=== PATIENT | female | born 1945 | race Caucasian/White ===

== ENCOUNTER 2017-02-10 07:40 | Inpatient (IN) ==
--- NOTE | 2017-02-09 16:16 | Discharge Summary ---
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 (2) Gout Priority: Secondary Status: Chronic Qualifiers: Gout site: unspecified site Gout etiology: unspecified cause Chronicity: unspecified Qualified Code(s): M10.9 - Gout, unspecified (3) Diabetes Priority: Secondary Status: Chronic Qualifiers: Diabetes mellitus type: type 2 Diabetes mellitus complication status: with unspecified complications Diabetes mellitus terminal computer operator insulin use: without usp use Qualified Code(s): E11.8 - Type 2 diabetes mellitus with unspecified complications (4) Hypertension Priority: Secondary Status: Chronic Qualifiers: Hypertension type: essential hypertension Qualified Code(s): I10 - Essential (primary) hypertension (5) Hypothyroidism Priority: Secondary Status: Chronic Qualifiers: Hypothyroidism type: unspecified Qualified Code(s): E03.9 - Hypothyroidism , unspecified - Discharge Medications Home Medications: Aripiprazole [Abilify] 5 mg PO HS 05/27/15 [History] Citalopram Hydrobromide [Celexa] 20 mg PO DAILY 05/27/15 [History] Furosemide [Lasix] 40 mg PO BID PRN 05/27/15 [History] Gabapentin [Neurontin] 600 mg PO 1800 05/27/15 [History] Levothyroxine Sodium [Synthroid] 150 mcg PO 0630 05/27/15 [History] Metformin [Glucophage] 1,000 mg PO DAILY 05/27/15 [History] Multivit-Min/FA/Lycopen/Lutein [Centrum Silver Tablet] 1 each PO DAILY 05/27/15 [History] Omeprazole [PriLOSEC] 40 mg PO DAILY 05/27/15 [History] Pravastatin Sodium [Pravachol] 20 mg PO DAILY 05/27/15 [History] Propranolol HCl 20 mg PO DAILY 05/27/15 [History] TraZODone 150 mg PO HS 05/27/15 [History] Tramadol HCl [Tramadol HCl ER] 50 mg PO HS PRN 05/27/15 [History] Allopurinol [Zyloprim] 300 mg PO DAILY PRN 02/10/17 [History] Aspirin/Calcium Carbonate/Mag [Aspirin Buffered 325 mg Tab] 325 mg PO QAM #21 tablet 02/10/17 [Rx] Doxycycline 100 mg PO DAILY 02/10/17 [History] Lisinopril/Hydrochlorothiazide [Zestoretic 20-25 mg Tablet] 1 each PO DAILY [History] OxyCODONE Immed Rel [Roxicodone 5 MG] 5 - 10 mg PO Q6HR PRN #40 tablet 02/10/17 [Rx] Allergies/Adverse Reactions: Allergies adhesive tape Adverse Reaction (Verified 02/10/17 09:08) Rash Primary care physician: Adwoa Pack MD - Patient Status Disposition: Transfer Hospital Swing Bed Condition: Good - Discharge Instructions Follow Up With: Adwoa Pack MD [Primary Care Provider] - Gwendolyn Trejo PAC [Physician Auto Body Repair Teacher] - 02/23/17 1:20 pm Additional Instructions: Discharge Instructions: Total Knee Replacement Please call [facility] ([phone]), your Primary Care Physician, or report to the Emergency Room if you have any of the following symptoms: Nausea, vomiting, fever greater that 101.5, swelling, chest pain, shortness of breath, increased pain/redness/drainage/odor for your incision site, numbness/ tingling, or any other concerning symptoms. ACTIVITY:Weight-bearing as tolerated. You may progress off support (crutches or walker) as tolerated. MEDICATIONS: Upon discharge resume your home medications. Take all the medications as prescribed. Take a stool softener if taking narcotic pain medications. Stool softeners are only effective if you drink enough fluids. Drink 6-8 glass of water or fluids a day, unless this is not allowed for another health problem. Despite using stool softeners, if you haven't had a bowel movement in 3 days, please switch to a gentle laxative. Gentle laxatives are sold over the counter. You should have a bowel movement within 24 hours, if not call the office. You will be discharged from the hospital with a prescription for pain medication. You are encouraged to decrease the use of narcotic pain medication as tolerated. Should you require a refill, please call the office. [facility] prescribes narcotic pain medication for only 4-6 weeks after surgery. If you require pain medication beyond this time period, you may be referred to your Primary Care Physician or to the Pain Clinic for further evaluation. Plan ahead for refills on pain medication as many narcotics either need to be picked up at the office or mailed. It is best to call 48-72 hours in advance of needing a prescription refill so you don't run out of medication. To help control the post-operative pain, you may take NSAIDs (Aleve,Advil, Motrin, Ibuprofen, Naprosyn) or Tylenol as prescribed on the bottle in addition to the pain medication. ANTICOAGULATION (blood thinners): Continue your Aspirin, Lovenox or Coumadin as prescribed to help prevent a blood clot in the leg or in the lungs. As long as your incision remains dry and you tolerate the NSAIDs (Aleve, Advil, Motrin, ibuprofen, naprosyn), it is OK to use the NSAIDS while you are taking your anticoagulation medication. Should your incision start to drain, stop the NSAID and contact our office. Common symptoms of blood clot in the legs include: localized pain, swelling, calf tenderness, redness or discoloration of the skin. Blood clot in the lung symptoms include: shortness of breath, rapid pulse, sweating, and chest pain that worsens with deep breathing, coughing up blood, lightheadedness, feelings of anxiety. If you experience any of these symptoms notify your physician immediately, go to the emergency room, or if having trouble breathing, call 911. WOUND CARE: Leave the dressing on for 7 to 10days. You may change the dressing if it becomes saturated greater than 50%. Do not get the dressing wet at anytime. Wash your hands with antibacterial soap, rinse and dry prior to any wound care. If you have odette the visiting nurse or rehab facility can remove the stapes 10-14 days after surgery and place steri-strips across the wound. Leave the steri-strips in place until they fall off on their won. You may let water from the shower run on top of the steri-strips. If you do not have a visiting nurse or rehab facility, you will need to return to the office at 10-14 days for the odette to be removed. If you have itching or redness around the dressing call the office. FOLLOW-UP: Please follow up with your surgeon in the orthopedic clinic in 4 weeks from the day of surgery. If you have odette that need to be removed, you will need to come back to the office in 10-14 days from the day of surgery. - Hospital Course Hospital course: Ms. Fraga is a 71 year old female - Time Spent with Patient Total time spent providing and/or coordinating discharge services: <Carolin Smart Cyrus - Last Filed: 02/10/17 08:10> Date of Encounter: 02/10/17 - Discharge Diagnosis (1) Loosening of knee joint prosthesis Priority: Primary Status: Acute Qualifiers: Encounter type: initial encounter Qualified Code(s): T84.038A - Mechanical loosening of other internal prosthetic joint, initial encounter; Z96.659 - Presence of unspecified artificial knee joint Primary care physician: Adwoa Pack MD - Hospital Course Hospital course: Ms. Fraga is a 71 year old female - Time Spent with Patient Total time spent providing and/or coordinating discharge services: <Daniel Feliciano - Last Filed: 02/15/17 16:58> Date of Encounter: 02/15/17 Time of Encounter: 16:57 - Discharge Diagnosis (1) Diabetes Priority: Secondary Status: Chronic Qualifiers: Diabetes mellitus type: type 2 Diabetes mellitus complication status: with unspecified complications Diabetes mellitus terminal computer operator insulin use: without usp use Qualified Code(s): E11.8 - Type 2 diabetes mellitus with unspecified complications (2) Thyroid disease Priority: Secondary Status: Chronic (3) Hypertension Priority: Secondary Status: Chronic Qualifiers: Hypertension type: essential hypertension Qualified Code(s): I10 - Essential (primary) hypertension (4) High cholesterol Priority: Secondary Status: Chronic (5) 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 (6) Gout Priority: Secondary Status: Chronic Qualifiers: Gout site: unspecified site Gout etiology: unspecified cause Chronicity: unspecified Qualified Code(s): M10.9 - Gout, unspecified (7) Hypothyroidism Priority: Secondary Status: Chronic Qualifiers: Hypothyroidism type: unspecified Qualified Code(s): E03.9 - Hypothyroidism , unspecified (8) Acute blood loss anemia Priority: Primary Status: Acute (9) Status post revision of total replacement of right knee Priority: Primary Status: Acute (10) Morbid obesity with BMI of 45.0-49.9, adult Priority: Secondary Status: Chronic Primary care physician: Adwoa Pack MD - Patient Status Functional capacity at discharge: uses cane/walker - Hospital Course Hospital course: Ms. Fraga is a 71 year old female Status post revision total knee patient had postoperative urinary retention which resolved with straight catheter patient also had sensitivity to pain medication required Narcan otherwise uneventful postoperative course received physical therapy and antibiotics discharged to extended care facility. - Time Spent with Patient Total time spent providing and/or coordinating discharge services:
--- NOTE | 2017-02-10 07:48 | History & Physical Report ---
Date of Encounter: 02/10/17 Time of Encounter: 07:47 24 Hour HP Update - Instructions Instructions: If the History and Physical is less than 30 days old and was completed prior to A.M. admission and or procedure and has NOT been updated on calendar day of procedure please complete this update prior to performing procedure. - Update Patient reports changes in Medical Condition: No Changes in examination, assessment, or condition: No Changes in Medication: No Preop tests/diagnostics Reviewed: Yes Surgery Remains Indicated: Yes Consent for Planned Operative Procedure(s) Verified: Yes - Pre-Operative Checklist Preoperative Checklist Indicated: No Prophylactic Antibiotic Ordered: Yes Is VTE Prophylaxis Indicated?: Yes
[2017-02-10] MEDS ORDERED: CeFAZolin Pre 2,000 MG/100 ML 2,000 MG/100 ML BAG IVPB ONE (08:02)
[2017-02-10] MEDS ORDERED: Lidocaine -MPF 1% 2 ML VIAL ID ONE (08:02)
[2017-02-10] MEDS: Ringers Solution, Lactated 1,000 ML IVC SCH ×2 (08:37→13:01)
--- NOTE | 2017-02-10 08:53 | Anesthesia Evaluation PreOp ---
Date of Encounter: 02/10/17 Time of Encounter: 08:51 - Past History Planned Operation: r tka Cardiac History: HTN, Hyperlipidemia, Other (echo: 05/31 ef 55, nl rv. 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 History: Other (depression) Other Medical History: Diabetes Type II, Thyroid, GERD Anesthesia History: No Prior Anesthetic Complications, Past Anesthesia ( cholecyst, r tka) Alcohol Use: none Drug use: none Medications and Allergies Aripiprazole [Abilify] 5 mg PO HS 05/27/15 [History] Citalopram Hydrobromide [Celexa] 40 mg PO DAILY 05/27/15 [History] Furosemide [Lasix] 40 mg PO DAILY PRN 05/27/15 [History] Gabapentin [Neurontin] 600 mg PO HS 05/27/15 [History] Levothyroxine Sodium [Synthroid] 150 mcg PO DAILY 05/27/15 [History] Lisinopril [Zestril] 20 mg PO DAILY 05/27/15 [History] Metformin [Glucophage] 1,000 mg PO DAILY 05/27/15 [History] Multivit-Min/FA/Lycopen/Lutein [Centrum Silver Tablet] 1 each PO DAILY 05/27/15 [History] Omeprazole [PriLOSEC] 40 mg PO DAILY 05/27/15 [History] Pravastatin Sodium [Pravachol] 20 mg PO HS 05/27/15 [History] Propranolol HCl 40 mg PO BID 05/27/15 [History] TraZODone 150 mg PO HS 05/27/15 [History] Tramadol HCl [Tramadol HCl ER] 50 mg PO Q6H 05/27/15 [History] Allopurinol [Zyloprim] 300 mg PO DAILY PRN 02/10/17 [History] Aspirin/Calcium Carbonate/Mag [Aspirin Buffered 325 mg Tab] 325 mg PO QAM #21 tablet 02/10/17 [Rx] OxyCODONE Immed Rel [Roxicodone 5 MG] 5 - 10 mg PO Q6HR PRN #40 tablet 02/10/17 [Rx] Allergies adhesive tape Adverse Reaction (Verified 02/10/17 08:26) Rash - Meds/Allergy Pre-op Review Medications Reviewed: Yes Allergies Reviewed: Yes Beta Blockers on Current Med List: Yes If Beta Blockers taken, Date/Time (Last Dose taken): propranolol at 0630 Anesthesia Results - Labs Laboratory Tests 02/03/17 02/03/17 02/03/17 13:50 13:50 13:50 Hgb 11.7 Hct 36.1 Plt Count 175 PT 13.4 H INR 1.2 APTT 33.6 Sodium 140 Potassium 3.7 Creatinine 0.86 Hemoglobin A1c 02/03/17 13:50 Hgb Hct Plt Count PT INR APTT Sodium Potassium Creatinine Hemoglobin A1c 7.2 H - Imaging EKG: report reviewed (sr) Anesthesia Exam O2 Sat Height 1.42 m Height 1.42 m Height 1.42 m Weight 93.894 kg Weight 93.894 kg Weight 93.894 kg O2 Sat by Pulse Oximetry 96 Vital Signs Temp Pulse Resp BP Pulse Ox 99.3 F 84 18 153/78 96 02/10/17 08:05 02/10/17 08:05 02/10/17 08:05 02/10/17 08:05 02/10/17 08:05 Blood glucose: 190 Height: 1.42 Weight: 94 NPO (# of Hours): >8 - HEENT Pupil (Motor): Pupils equal, EOMI Mallampati: III Teeth: Poor dentition Oral Opening: Less than or equal to 3 (limited neck ext 2/2 buffalo hump, large neck) - [employer] SU[employer] WORKER LOC: Oriented [employer] SU[employer] WORKER Motor: Normal RUE, Normal LUE, Normal RLE, Normal LLE, Normal Face [employer] SU[employer] WORKER Sensory: Normal: RUE, LUE, RLE, LLE, Face - Cardiac Rhythm: Regular Murmur: None - Pulmonary Breath Sounds: bilateral Clear Respiratory Effort: Symmetrical Anesthesia Assess/Plan ASA Score: 3 Modified Naila Scale for Level of Consciousness: Cooperative, oriented, and tranquil Anesthetic Plan: General, Regional Monitoring Plan: Standard Monitors Recovery Plan: PACU
[2017-02-10] MEDS ORDERED: CloNIDine Patch 0.1 MG PATCH (WEEKLY) TD ONE (09:15)
[2017-02-10] MEDS ORDERED: *HR* Midazolam HCl 2 MG/2 ML VIAL ONE ×2 (09:46→10:02)
[2017-02-10] MEDS ORDERED: Lidocaine -MPF 4% 5 ML AMPUL ONE (10:02)
[2017-02-10] MEDS ORDERED: Lidocaine -MPF 2% 2 ML VIAL ONE (10:02)
[2017-02-10] MEDS ORDERED: *HR* Propofol 200 MG/20 ML VIAL IVP ONE (10:02)
[2017-02-10] MEDS ORDERED: *HR* FentaNYL (PF) 100 MCG/2 ML VIAL ONE ×2 (10:02→11:42)
[2017-02-10] MEDS ORDERED: Bupivacaine/Clonidine Syringe 1 EACH SYRINGE ONE (10:52)
[2017-02-10] MEDS ORDERED: Dexamethasone 4 MG/ML VIAL ONE (11:25)
[2017-02-10] MEDS ORDERED: Ondansetron 4 MG/2 ML VIAL ONE (11:25)
[2017-02-10] MEDS ORDERED: Ondansetron 4 MG/2 ML VIAL IVP ONE (11:27)
[2017-02-10] MEDS ORDERED: *HR* Labetalol 20 MG/4 ML SYRINGE IVP PRN (11:27)
[2017-02-10] MEDS ORDERED: *HR* HYDROmorphone (PF) 1 MG/ML SYRINGE IVP PRN ×2 (11:27→13:38)
[2017-02-10] MEDS ORDERED: Albuterol 2.5 MG/3 ML NEBULIZER IH ONE (11:27)
[2017-02-10] MEDS ORDERED: *HR* Meperidine 25 MG/ML SYRINGE IVP PRN (11:27)
[2017-02-10] MEDS ORDERED: Naloxone 0.4 MG/ML INJ IVP PRN ×2 (11:27→13:38)
[2017-02-10] MEDS ORDERED: Ringers Solution, Lactated 1,000 ML IVC SCH ×2 (11:30→13:38)
--- NOTE | 2017-02-10 11:31 | Anesthesia Procedures ---
Date of Encounter: 02/10/17 Time of Encounter: : Procedures: Anesthesia - Nerve Block Procedure Date: 02/10/17 Time: 11:29 Surgical Procedure: right tkr, revision right tibia Checklist: Correct Patient Identifier, Correct procedure, History checked Correct side: Right Blood Thinner: No Monitor Applied: EKG, BP, Pulse Oximetry Supplemental Oxygen via Nasal Cannula (L/min): 2 Sedation: Versed (mg): 2 Sedation: Fentanyl (mcg): 100 Indication: Post Op Analgesia (request per dr. perez for post op pain control) Pre-op Neuro Deficits: No Block Type: Femoral, Other (ipack) Catheter placed: No Sterile Technique: Yes Ultrasound used: Yes Anatomy identified: Yes Visual spread of Local: Yes Neuro Stimulation: Yes Nerve Stimulator Range: >0.4 - 0.6 mA Blood on Needle Aspiration: No Smooth Injection of Local: Yes Pain with Injection of Local: No Prep: Chlorhexadine Needle: 22 x 50 mm Stimuplex, 21 x 100 mm Stimuplex (ipack) Local: 0.25% Bupivicaine w/Clonidine 20 mcg/cc Volume (cc): 30ml for each block Number of Attempts: 1 Complications: None/effective block Vitals: Vital Signs/O2 Sat/Glucose, Most Current Temp Pulse Resp BP Pulse Ox 02/10/17 11:10 81 16 140/68 98 02/10/17 10:51 79 16 146/65 97 02/10/17 08:05 99.3 F 84 18 153/78 96 Comments: pt tolerated well. no complications. vss.
[2017-02-10] MEDS ORDERED: EPHEDrine 50 MG/ML VIAL ONE (11:34)
--- NOTE | 2017-02-10 12:04 | Orthopedic Operative Note ---
Date of procedure: 02/10/17 Pre-op diagnosis: Aseptic loosening right tibial component of total knee Post-op diagnosis: same Procedure: Procedure: Right revision tibial component Estimated blood loss: 200 cc Hardware: Metal and polyethylene replacement Arthrex tibia size 2, 12 x 50 stem, 18 PS Veronica Exam Under anesthesia: Full flexion full extension well-healed incision no swelling or erythema no varus valgus instability Procedural Notes: Gross Loosening of tibial component Operative procedure: The patient was brought to the operating room and placed on the operating room table. After general anesthesia was administered the operative knee was examined. Findings were noted in the exam under anesthesia. The operative extremity was prepped and draped in sterile surgical fashion. The patient received IV antibiotics prior to skin incision. A standard midline incision was made centered over the patella. The incision was made through the skin and subcutaneous tissue through the old incision. A medial parapatellar tendon approach was performed. Care was taken to preserve tissue along the medial aspect of the patella. And to protect the patella tendon. The deep MCL was released off the medial tibia. The infra patella fat pad was excised. Cultures were obtained as well as Gram stain. The knee was brought into flexion the tibial poly-was removed. The femur was well fixed. Attention was then turned to the tibial component. The tibial component was loose and removed with an osteotome without any bone loss. Tibia was recut just below the level of the cement mantle. The tibia was prepared first sized to a 2 reamed to a 12 x 50 stem. The finishing punch was seated. Trial had good fit and fixation. Trial reduction revealed full extension and full flexion no varus valgus instability with an 18 PS Veronica. Trial components removed knee sat for 2 minutes with a Betadine saline solution. It was irrigated out with pulse irrigation. Components were assembled on the back table. The tibia cemented. The 18 PS Veronica was seated and secure. The had full flexion and full extension and excellent patella tracking no varus valgus instability. After the cement hardened the knee was irrigated out again. The knee was taken through a range of motion had excellent patella tracking. DAWIT Byrnes , closed the knee. The extensor mechanism was closed with a running #2 Fiberwire suture and a running #2 PDS suture. The deep tissue was irrigated and closed deep with #1 PDS suture superficially with 0 PDS suture. The skin was closed with Dermabond and skin odette. The patient was placed in a sterile dressing and postoperative brace. They were extubated and transferred to recovery room in stable condition. Anesthesia: GETA Surgeon: Daniel Feliciano Condition: stable Disposition: PACU
--- NOTE | 2017-02-10 12:58 | Anesthesia Evaluation Post Op ---
Date of Encounter: 02/10/17 Time of Encounter: 12:58 - Vital Signs Vital Signs: Vital Signs/O2 Sat/Glucose, Most Current Temp Pulse Resp BP Pulse Ox 02/10/17 12:53 86 16 136/61 96 02/10/17 12:43 85 16 133/62 97 02/10/17 12:33 97.0 F L 78 12 128/62 98 02/10/17 11:10 81 16 140/68 98 02/10/17 10:51 79 16 146/65 97 - Lungs Lungs: Clear Ascult./Percussion - Airway Airway: Non-obstructed - Cardiovascular Regular Rate - Mental Status Mental Status: Alert & Oriented, Answers Appropriately - Pain Pain Scale: 0 - Nausea Vomiting Nausea Vomiting: Not Present - Hydration Hydration: Ice chips - Discharge PostOp Status: Transfer Patient to floor
[2017-02-10 13:02] LABS: Hematocrit 33.7 % (35.3-44.9); Hemoglobin 10.9 g/dL (11.5-15.4)
[2017-02-10] MEDS ORDERED: *HR* OxyCODONE Immed Rel 5 MG TABLET PO PRN (13:38)
[2017-02-10] MEDS ORDERED: MOM Conc 10 ML UD.LIQ PO PRN (13:38)
[2017-02-10] MEDS ORDERED: Temazepam 15 MG CAPSULE PO PRN (13:38)
[2017-02-10] MEDS ORDERED: Furosemide 40 MG TABLET PO PRN (13:38)
[2017-02-10] MEDS ORDERED: Sennosides 8.6 MG TABLET PO PRN (13:38)
[2017-02-10] MEDS ORDERED: Ondansetron 4 MG/2 ML VIAL IVP PRN (13:38)
--- NOTE | 2017-02-10 14:23 | Physician Discharge Referral ---
Home Health/Hosp Referral Info Transfer to: Home Health Attending Provider: Provider in Charge Post Discharge: PCP - Diagnosis (1) Status post revision of total replacement of right knee Priority: Primary Status: Acute (2) Loosening of knee joint prosthesis Priority: Primary Status: Acute (3) Diabetes Priority: Secondary Status: Chronic (4) Thyroid disease Priority: Secondary Status: Chronic (5) Hypertension Priority: Secondary Status: Chronic (6) Gout Status: Chronic - Respiratory Orders None Smoking Cessation: Smoking cessation has been advised. For more information, call the [facility] Tobacco Quit Line at 9-254-DBYH-NOW. - Dressing/Wound Care Site: Right Knee Type of Dressing/Treatments w/Frequency: Opsite dressing, leave intact until first post-operative visit. If dressing becomes >50% saturated, contact office, remove dressing and place appropriate dressing in its place. Do not allow for dressing to get wet. [place] in place, plan to remove at post-operative day #14-16. - Diet/Nutrition Diet/Nutrition Orders: Regular - Activity Activity Orders: Up ad concepcion, Ambulate - Services Needed Following services are medically necessary services: Nursing, Physical Therapy, Occupational Therapy Other Treatments: Apply cold therapy wrap 3-6x/day for 20 minutes at a time. Encourage ambulation throughout the day and incentive spirometer 10x/hour. Elevate affected extremity above heart as tolerated. Brace: Wear knee immobilizer at night x 2 weeks. - Transfer Medications Home Medications: Aripiprazole [Abilify] 5 mg PO HS 05/27/15 [History] Citalopram Hydrobromide [Celexa] 20 mg PO DAILY 05/27/15 [History] Furosemide [Lasix] 40 mg PO BID PRN 05/27/15 [History] Gabapentin [Neurontin] 600 mg PO 1800 05/27/15 [History] Levothyroxine Sodium [Synthroid] 150 mcg PO 0630 05/27/15 [History] Metformin [Glucophage] 1,000 mg PO DAILY 05/27/15 [History] Multivit-Min/FA/Lycopen/Lutein [Centrum Silver Tablet] 1 each PO DAILY 05/27/15 [History] Omeprazole [PriLOSEC] 40 mg PO DAILY 05/27/15 [History] Pravastatin Sodium [Pravachol] 20 mg PO DAILY 05/27/15 [History] Propranolol HCl 20 mg PO DAILY 05/27/15 [History] TraZODone 150 mg PO HS 05/27/15 [History] Tramadol HCl [Tramadol HCl ER] 50 mg PO HS PRN 05/27/15 [History] Allopurinol [Zyloprim] 300 mg PO DAILY PRN 02/10/17 [History] Aspirin/Calcium Carbonate/Mag [Aspirin Buffered 325 mg Tab] 325 mg PO QAM #21 tablet 02/10/17 [Rx] Doxycycline 100 mg PO DAILY 02/10/17 [History] Lisinopril/Hydrochlorothiazide [Zestoretic 20-25 mg Tablet] 1 each PO DAILY [History] OxyCODONE Immed Rel [Roxicodone 5 MG] 5 - 10 mg PO Q6HR PRN #40 tablet 02/10/17 [Rx] Allergies/Adverse Reactions: Allergies adhesive tape Adverse Reaction (Verified 02/10/17 09:08) Rash Certification: Further, I certify that my clinical findings support that this patient is homebound (i.e. absences from home require considerable and taxing effort and are for medical reasons or hoahaoism services or infrequently or short duration when for other reasons) because: Homebound Reason: Post-surgery restriction and or conditions limit ability to leave home Attestation: My signature below is to certify that this patient is under my care and that I, or nurse practitioner, or a physician's family readiness support assistant working with me, has a face-to -face encounter with this patient.
[2017-02-10] MEDS: *HR* OxyCODONE Immed Rel 5 MG TABLET PO PRN ×2 (15:40→22:16)
[2017-02-10] MEDS: ceFAZolin 2,000 MG in D5% in Water 100 ML IVPB SCH (16:39)
[2017-02-10] MEDS: *HR* Enoxaparin 30 MG/0.3 ML SYRINGE SQ SCH (16:40)
[2017-02-10] MEDS: Gabapentin 300 MG CAPSULE PO SCH (16:40)
[2017-02-10] MEDS ORDERED: *HR* Enoxaparin 30 MG/0.3 ML SYRINGE SQ SCH (18:00)
[2017-02-10] MEDS: traZODone 50 MG TABLET PO SCH (20:04)
[2017-02-10] MEDS: ARIPiprazole 5 MG TABLET PO SCH (20:04)
[2017-02-11] MEDS: ceFAZolin 2,000 MG in D5% in Water 100 ML IVPB SCH (00:12)
[2017-02-11 05:41] LABS: Hematocrit 28.8 % (35.3-44.9)
[2017-02-11 05:42] LABS: Hemoglobin 9.1 g/dL (11.5-15.4)
[2017-02-11 05:53] LABS: BUN/Creatinine Ratio 11 (6-26); Blood Urea Nitrogen 9 mg/dL (7-20); Calcium 8.5 mg/dL (8.6-10.8); Carbon Dioxide 29 mEq/L (19-29); Chloride 97 mEq/L (98-109); Glucose 152 mg/dL (70-99); Osmolality,Calculated 286 (280-300); Potassium 3.8 mEq/L (3.5-4.5); Sodium 137 mEq/L (136-145); eGFR For African Americans > 60 (> 60); eGFR For Non-African Americans > 60 (> 60)
[2017-02-11] MEDS: *HR* Enoxaparin 30 MG/0.3 ML SYRINGE SQ SCH ×2 (05:53→17:37)
[2017-02-11] MEDS: *HR* OxyCODONE Immed Rel 5 MG TABLET PO PRN ×3 (05:54→17:37)
--- NOTE | 2017-02-11 07:55 | Orthopedics Progress Note ---
Date of Encounter: 02/11/17 Time of Encounter: 07:55 - Assessment and Plan (1) Diabetes Current Visit: No Status: Chronic Qualifiers: Diabetes mellitus type: type 2 Diabetes mellitus complication status: with unspecified complications Diabetes mellitus retirement insulin use: without director long term care use Qualified Code(s): E11.8 - Type 2 diabetes mellitus with unspecified complications (2) Thyroid disease Current Visit: No Status: Chronic (3) Hypertension Current Visit: No Status: Chronic Qualifiers: Hypertension type: essential hypertension Qualified Code(s): I10 - Essential (primary) hypertension (4) High cholesterol Current Visit: No Status: Chronic (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 Afebrile vital signs stable. Operative extremity: Neurovascularly intact Dressing clean dry and intact Calves nontender Assessment and plan: Continue with postoperative care Hemoglobin 9.1, asymptomatic plan for discharge home tomorrow Objective Vital signs: Vital Signs Temp Pulse Resp BP Pulse Ox 02/11/17 04:46 98 F 75 17 103/67 98 02/10/17 23:07 98 F 74 15 100/64 96 02/10/17 19:46 98.3 F 82 17 123/70 96 02/10/17 16:10 98.3 F 77 15 149/67 96 02/10/17 15:51 78 118/70 96 02/10/17 15:20 98.5 F 80 16 136/74 94 02/10/17 14:31 98.7 F 82 16 158/78 95 02/10/17 13:58 98.0 F 79 16 118/70 95 02/10/17 13:30 98.1 F 82 16 136/73 97 02/10/17 13:13 82 16 124/64 97 02/10/17 13:03 97.0 F L 81 18 117/75 96 02/10/17 12:53 86 16 136/61 96 02/10/17 12:43 85 16 133/62 97 02/10/17 12:33 97.0 F L 78 12 128/62 98 02/10/17 11:10 81 16 140/68 98 02/10/17 10:51 79 16 146/65 97 02/10/17 08:05 99.3 F 84 18 153/78 96 Intake and Output 02/10/17 02/10/17 02/11/17 15:59 23:59 07:59 Intake Total 1100 / 1100 100 / 100 Output Total 500 / 500 250 / 250 Balance 600 / 600 -150 / -150 Intake: IV Fluids 1100 / 1100 100 / 100 Lactated Ringers 1,000 ML 1000 / 1000 @ 25 mls/hr IVC .Q24H STAN Rx#:[id number] Ancef Premix 2,000 MG/100 100 / 100 ML 2,000 mg In 100 ml @ 200 mls/hr IVPB PREOP ONE Rx#:[id number] Ancef 2,000 MG In 100 / 100 Dextrose 5% 100 ML @ 200 mls/hr IVPB Q8H STAN Rx#: [id number] Output: Urine 250 / 250 Estimated Blood Loss 500 / 500 Other: Weight 93.894 kg Blood Glucose* 180 263 - Labs CBC & BMP: 02/11/17 05:05 02/11/17 05:05 Labs: Abnormal lab results Hgb 9.1 g/dL (11.5-15.4) L D 02/11/17 05:05 Hct 28.8 % (35.3-44.9) L 02/11/17 05:05 Chloride 97 mEq/L (98-109) L 02/11/17 05:05 Glucose 152 mg/dL (70-99) H 02/11/17 05:05 POC Glucose 263 (58-89) H 02/10/17 19:49 Calcium 8.5 mg/dL (8.6-10.8) L 02/11/17 05:05 - VTE Documentation of Mechanical Device: Venous foot pump, device Consult Discharge Plan - Plan Referrals: Gwendolyn Trejo, PAC [Physician Aluminum Pool Installer] - 07/11/17 1:20 pm Adwoa Pack MD [Primary Care Provider] -
[2017-02-11] MEDS: *HR* Metformin 500 MG TABLET PO SCH (08:51)
[2017-02-11] MEDS: Multivit/Ca/Min/Fe/FA 1 TAB TABLET PO SCH (08:52)
--- NOTE | 2017-02-11 12:14 | Event Note ---
Date of Encounter: 02/11/17 Time of Encounter: 12:13 Dressing was applying pressure to proximal incision. Dressing was removed, 1 staple removed, area cleansed and new Opsite applied. No bleeding noted.
[2017-02-11] MEDS: Gabapentin 300 MG CAPSULE PO SCH (17:37)
[2017-02-11] MEDS: traZODone 50 MG TABLET PO SCH (20:45)
[2017-02-11] MEDS: ARIPiprazole 5 MG TABLET PO SCH (20:45)
[2017-02-12 01:48] LABS: Hematocrit 26.5 % (35.3-44.9); Hemoglobin 8.1 g/dL (11.5-15.4)
[2017-02-12 02:06] LABS: Calcium 8.2 mg/dL (8.6-10.8); Potassium 3.8 mEq/L (3.5-4.5)
[2017-02-12] MEDS: *HR* Enoxaparin 30 MG/0.3 ML SYRINGE SQ SCH (05:43)
[2017-02-12] MEDS: Multivit/Ca/Min/Fe/FA 1 TAB TABLET PO SCH (08:28)
[2017-02-12] MEDS: *HR* Metformin 500 MG TABLET PO SCH (08:29)
[2017-02-12] MEDS ORDERED: 0.9 % Sodium Chloride 250 ML ONE ×2 (11:35→16:26)
--- NOTE | 2017-02-12 12:27 | Event Note ---
Date of Encounter: 02/12/17 Time of Encounter: 12:26 Order for 1/2 dose Narcan to be given secondary to patient continuing to be lethargic and requiring 1 L O2. Patient currently being transfused with first unit of blood. After Narcan patient more alert and conversive. Spoke with SW who has already spoken with patient regarding rehab. Working on placement to [facility].
--- NOTE | 2017-02-12 12:51 | Orthopedics Progress Note ---
Date of Encounter: 02/12/17 Time of Encounter: 08:00 - Assessment and Plan (1) Status post revision of total replacement of right knee Current Visit: Yes Status: Acute See Subjective (2) Loosening of knee joint prosthesis Current Visit: Yes Status: Acute Qualifiers: Encounter type: initial encounter Qualified Code(s): T84.038A - Mechanical loosening of other internal prosthetic joint, initial encounter; Z96.659 - Presence of unspecified artificial knee joint (3) Diabetes Current Visit: No Status: Chronic Qualifiers: Diabetes mellitus type: type 2 Diabetes mellitus complication status: with unspecified complications Diabetes mellitus usp insulin use: without medical terminologist use Qualified Code(s): E11.8 - Type 2 diabetes mellitus with unspecified complications (4) Thyroid disease Current Visit: No Status: Chronic (5) Hypertension Current Visit: No Status: Chronic Qualifiers: Hypertension type: essential hypertension Qualified Code(s): I10 - Essential (primary) hypertension (6) Gout Current Visit: Yes Status: Chronic Qualifiers: Gout site: unspecified site Gout etiology: unspecified cause Chronicity: unspecified Qualified Code(s): M10.9 - Gout, unspecified Subjective Principal diagnosis: Riight TKR revision Interval history: POD#2 -- RIGHT Revision TKR. Patient was seen this morning, increased lethargy. No output per nursing notes . Patient reports she was able to urinate this morning a little. H/H drop - 8.1/26.5 - Transfuse 2 units today. Bladder scan this morning and straight cath if urinary retention evident. Afebrile, Hypotension noted, otherwise stable. Continue IV fluids. Operative extremity: Neurovascularly intact Dressing clean dry and intact Calves nontender Assessment and plan: Continue with postoperative care Plan for D/C Home with once stable* Objective Vital signs: Vital Signs Temp Pulse Resp BP Pulse Ox 02/12/17 12:30 98.0 F 81 19 98/45 97 02/12/17 12:15 97.9 F 80 20 96/49 98 02/12/17 11:17 98.3 F 82 20 94/57 96 02/12/17 07:32 97.8 F 82 22 89/52 91 02/11/17 23:57 99.8 F H 84 16 97/58 93 02/11/17 20:19 99.9 F H 88 22 112/64 95 02/11/17 16:51 98.4 F 79 17 104/63 100 Intake and Output 02/11/17 02/12/17 02/12/17 23:59 07:59 15:59 Intake Total 120 / 120 0 / 0 0 / 0 Balance 120 / 120 0 / 0 0 / 0 Intake: Oral 120 / 120 0 / 0 Blood Product 0 / 0 Rbcs Leuko Poor As-1 0 / 0 Unit [id number] Other: Blood Glucose* 170 175 229 Incision: clean and dry - Labs CBC & BMP: 02/12/17 01:15 02/12/17 01:15 Labs: Abnormal lab results Hgb 8.1 g/dL (11.5-15.4) L 02/12/17 01:15 Hct 26.5 % (35.3-44.9) L 02/12/17 01:15 Sodium 134 mEq/L (136-145) L 02/12/17 01:15 Chloride 97 mEq/L (98-109) L 02/12/17 01:15 Carbon Dioxide 30 mEq/L (19-29) H 02/12/17 01:15 Creatinine 1.51 mg/dL (0.57-1.11) H D 02/12/17 01:15 Est GFR ( Amer) 41 (> 60) L 02/12/17 01:15 Est GFR (Non-Af Amer) 34 (> 60) L 02/12/17 01:15 Glucose 219 mg/dL (70-99) H 02/12/17 01:15 POC Glucose 229 (58-89) H 02/12/17 11:24 Calcium 8.2 mg/dL (8.6-10.8) L 02/12/17 01:15 - VTE Documentation of Mechanical Device: Venous foot pump, device Consult Discharge Plan - Plan Referrals: Gwendolyn Trejo PAC [Physician Resident Care Coordinator] - 02/23/17 1:20 pm Adwoa Pack MD [Primary Care Provider] -
[2017-02-12] MEDS: Gabapentin 300 MG CAPSULE PO SCH (17:36)
[2017-02-12] MEDS: traZODone 50 MG TABLET PO SCH (21:07)
[2017-02-12] MEDS: ARIPiprazole 5 MG TABLET PO SCH (21:08)
[2017-02-13] MEDS ORDERED: *HR* Enoxaparin 30 MG/0.3 ML SYRINGE SQ SCH (06:00)
[2017-02-13 07:04] VITALS: BP 108/56
[2017-02-13 07:48] LABS: Hematocrit 32.3 % (35.3-44.9)
[2017-02-13 07:53] LABS: Hemoglobin 10.7 g/dL (11.5-15.4)
[2017-02-13 07:58] LABS: BUN/Creatinine Ratio 20 (6-26); Blood Urea Nitrogen 19 mg/dL (7-20); Calcium 8.4 mg/dL (8.6-10.8); Carbon Dioxide 25 mEq/L (19-29); Chloride 94 mEq/L (98-109); Glucose 229 mg/dL (70-99); Osmolality,Calculated 282 (280-300); Potassium 3.8 mEq/L (3.5-4.5); Sodium 131 mEq/L (136-145); eGFR For African Americans > 60 (> 60); eGFR For Non-African Americans 59 (> 60)
--- NOTE | 2017-02-13 08:32 | Physician Discharge Referral ---
ExtendedCare Referral Info Transfer To: [facility] Provider in Charge: Dr. Daniel Feliciano Institutional Level of Care: Skilled - Diagnosis (1) Disorder of joint prosthesis Priority: Primary Status: Chronic (2) Gout Priority: Secondary Status: Chronic (3) Diabetes Priority: Secondary Status: Chronic (4) Hypertension Priority: Secondary Status: Chronic (5) Hypothyroidism Priority: Secondary Status: Chronic (6) Postoperative anemia Priority: Secondary Status: Chronic Expected Duration of Placement: 30 days Prognosis: Good Aware of Diagnosis: Patient, Family Aware of Prognosis: Patient, Family - Transfer Medications Home Medications: Aripiprazole [Abilify] 5 mg PO HS 05/27/15 [History] Citalopram Hydrobromide [Celexa] 20 mg PO DAILY 05/27/15 [History] Furosemide [Lasix] 40 mg PO BID PRN 05/27/15 [History] Gabapentin [Neurontin] 600 mg PO 1800 05/27/15 [History] Levothyroxine Sodium [Synthroid] 150 mcg PO 0630 05/27/15 [History] Metformin [Glucophage] 1,000 mg PO DAILY 05/27/15 [History] Multivit-Min/FA/Lycopen/Lutein [Centrum Silver Tablet] 1 each PO DAILY 05/27/15 [History] Omeprazole [PriLOSEC] 40 mg PO DAILY 05/27/15 [History] Pravastatin Sodium [Pravachol] 20 mg PO DAILY 05/27/15 [History] Propranolol HCl 20 mg PO DAILY 05/27/15 [History] TraZODone 150 mg PO HS 05/27/15 [History] Tramadol HCl [Tramadol HCl ER] 50 mg PO HS PRN 05/27/15 [History] Allopurinol [Zyloprim] 300 mg PO DAILY PRN 02/10/17 [History] Aspirin/Calcium Carbonate/Mag [Aspirin Buffered 325 mg Tab] 325 mg PO QAM #21 tablet 02/10/17 [Rx] Doxycycline 100 mg PO DAILY 02/10/17 [History] Lisinopril/Hydrochlorothiazide [Zestoretic 20-25 mg Tablet] 1 each PO DAILY [History] OxyCODONE Immed Rel [Roxicodone 5 MG] 5 - 10 mg PO Q6HR PRN #40 tablet 02/10/17 [Rx] Allergies/Adverse Reactions: Allergies adhesive tape Adverse Reaction (Verified 02/10/17 09:08) Rash - Respiratory Orders Smoking Cessation: Patient does not smoke. For more information regarding smoking cessation, call the [employer] Tobacco Quit Line at 6-924-CLJD-NOW. - Lab Orders Lab Orders: CBC (Patient received 2 units of blood while inpatient. Please continue to monitor.) - Ancillary Orders May use pressure relief devices daily prn, May go on TRICIA w/family/respon green party w /meds at nurse discretion PRN, May consult with Dentist, Sand Mixer Operator, Quality Assurance Monitor Body PRN - Mobility Orders Ambulate - Rehabiliation Orders Rehab Potential: Good Other: Total Knee replacement Precautions x 6 weeks Apply cold therapy wrap 3-6x/day for 20 minutes at a time. Encourage ambulation throughout the day and incentive spirometer 10x/hour. Elevate affected extremity above heart as tolerated. Brace: Wear knee immobilizer at night x 2 weeks. - Treatments List/Other: Opsite dressing, leave intact until first post-operative visit. If dressing becomes greater than 50% saturated, contact office, remove dressing and place appropriate dressing in its place. Do not allow for dressing to get wet. Kj in place, plan to remove at post-operative day #14-16. - Diet Orders Regular (Diabetic) CERTIFICATION: I certify that the transfer of the above named patient to an Extended Care Facility is necessary for the continuing treatment of the diagnosis listed. The above information is true and accurate reflection of patient's current condition. Confidential - Redisclosure prohibited without a patient's written consent.
--- NOTE | 2017-02-13 10:15 | Orthopedics Progress Note ---
Date of Encounter: 02/13/17 Time of Encounter: 10:13 Subjective Principal diagnosis: Riight TKR revision Interval history: POD#3 RIGHT Revision TKR. Patient was seen this morning. Still with drowsiness, likely related to pain medication. Has voided Operative extremity: Neurovascularly intact Dressing clean dry and intact Calves nontender Assessment and plan: Continue with postoperative care Improved BP and creatinine has normalized. Plan for D/C to [place] today. Objective Vital signs: Vital Signs Temp Pulse Resp BP Pulse Ox 02/13/17 06:34 98.8 F 94 16 108/56 95 02/13/17 00:16 99.1 F 84 25 104/50 95 02/12/17 21:00 95 02/12/17 20:45 99.3 F 90 16 108/48 02/12/17 17:00 98.5 F 83 14 115/44 96 02/12/17 16:45 97.6 F 83 19 114/53 96 02/12/17 15:40 98.3 F 89 24 113/64 95 02/12/17 15:07 97.6 F 83 19 114/53 96 02/12/17 12:30 98.0 F 81 19 98/45 97 02/12/17 12:15 97.9 F 80 20 96/49 98 02/12/17 11:17 98.3 F 82 20 94/57 96 Intake and Output 02/12/17 02/13/17 02/13/17 23:59 07:59 15:59 Intake Total 1250 / 1250 200 / 200 Output Total 400 / 400 Balance 850 / 850 200 / 200 Intake: Oral 900 / 900 200 / 200 Blood Product 350 / 350 Rbcs Leuko Poor As-1 350 / 350 Unit [id number] Output: Urine 400 / 400 Other: Meal Dinner Percent of Meal Consumed 15% # Voids 1 Blood Glucose* 223 212 - Labs CBC & BMP: 02/13/17 07:39 02/13/17 07:39 Labs: Abnormal lab results Hgb 10.7 g/dL (11.5-15.4) L D 02/13/17 07:39 Hct 32.3 % (35.3-44.9) L 02/13/17 07:39 Sodium 131 mEq/L (136-145) L 02/13/17 07:39 Chloride 94 mEq/L (98-109) L 02/13/17 07:39 Est GFR (Non-Af Amer) 59 (> 60) L 02/13/17 07:39 Glucose 229 mg/dL (70-99) H 02/13/17 07:39 POC Glucose 212 (58-89) H 02/13/17 07:37 Calcium 8.4 mg/dL (8.6-10.8) L 02/13/17 07:39 - VTE Documentation of Mechanical Device: Venous foot pump, device Consult Discharge Plan - Plan Referrals: Gwendolyn Trejo, PAC [Physician Academic Advisor] - 02/23/17 1:20 pm Adwoa Pack MD [Primary Care Provider] -
== END 2017-02-13 12:08 | disposition other institution (70) ==
LOC: SAMDAY 07:40 → 3NENU 13:27
PROVIDERS: ADMIT Orthopaedic Surgery; ATTEND Orthopaedic Surgery

== ENCOUNTER 2022-05-12 16:17 | Inpatient (IN) ==
[2022-05-12] MEDS ORDERED: *HR* Dextrose 50 % in Water (Syg) 50 ML SYRINGE IVP PRN (21:51)
[2022-05-12] MEDS ORDERED: D5% in Water 1,000 ML IVC PRN (21:51)
[2022-05-12] MEDS ORDERED: Ondansetron 4 MG/2 ML VIAL IVP PRN (21:51)
[2022-05-12] MEDS ORDERED: Naloxone 0.4 MG/ML INJ IVP PRN (21:51)
[2022-05-12] MEDS ORDERED: Dextrose Gel 15 GM/37.5 ML TUBE PO PRN ×2 (21:51)
[2022-05-12] MEDS ORDERED: Melatonin 3 MG TABLET PO PRN (21:51)
[2022-05-12] MEDS ORDERED: SODIUM CHLORIDE/NAHCO3/KCL/PEG 4,000 ML SOLN.RECON PO ONE (22:46)
[2022-05-12] MEDS ORDERED: allopurinoL 300 MG TABLET PO PRN (22:47)
[2022-05-12] MEDS ORDERED: traZODone 50 MG TABLET PO SCH ×2 (23:00→23:45)
[2022-05-12] MEDS: Ipratropium/Albuterol Neb 3 ML IH SCH (23:41)
[2022-05-13] MEDS: Insulin LISPRO 300 UNITS/3 ML VIAL SUBQ SCH ×5 (00:08→23:15)
[2022-05-13] MEDS: Ipratropium/Albuterol Neb 3 ML IH SCH ×5 (04:18→20:24)
[2022-05-13] MEDS ORDERED: Iopamidol - 370 500 ML MLS IVP ONE (05:01)
[2022-05-13] MEDS: Pantoprazole 40 MG VIAL IVP SCH ×2 (05:08→17:14)
[2022-05-13 05:30] LABS: Basophils % 0.3 %; Eosinophils # 0.3 K/mcL (0.0-0.6); Eosinophils % 2.8 %; Hematocrit 25.5 % (35.3-44.9); Hemoglobin 8.3 g/dL (11.5-15.4); Immature Granulocytes % 0.9 % (0-4); Lymphocytes # 0.5 K/mcL (0.6-4.6); Lymphocytes % 5.4 %; Mean Corpuscular HGB Conc 32.5 g/dL (31.6-35.5); Mean Corpuscular Hemoglobin 28.5 pg (28.0-33.3); Mean Corpuscular Volume 87.6 fL (83.0-100.0); Mean Platelet Volume 8.9 fL (9.4-12.4); Monocytes # 0.5 K/mcL (0.0-1.3); Monocytes % 5.7 %; Neutrophils # 7.6 K/mcL (1.6-8.9); Platelet Count 198 K/mcL (140-400); Red Blood Count 2.91 M/mcL (3.82-4.97); Red Cell Distribution Width 16.3 % (11.5-14.5); Segmented Neutrophils % 84.9 %; White Blood Count 8.9 K/mcL (4.3-11.1)
[2022-05-13 05:37] LABS: INR 1.2; Prothrombin Time 13.8 Seconds (9.4-12.1)
[2022-05-13 05:39] LABS: Activated Partial Thrombo Time 29.7 Seconds (26.0-36.0)
[2022-05-13 05:49] LABS: Calcium 8.3 mg/dL (8.6-10.3); Chol/HDL Ratio 3.8 (0-4.9); Magnesium 1.7 mg/dL (1.6-2.6); Phosphorous 2.9 mg/dL (2.7-4.5); Potassium 3.7 mEq/L (3.5-5.1)
[2022-05-13 05:56] LABS: Estimated Average Glucose 134 mg/dl; Hemoglobin A1C 6.3 %
[2022-05-13] MEDS ORDERED: 0.9 % Sodium Chloride 500 ML IVC ONE (08:41)
[2022-05-13] MEDS ORDERED: Spironolactone 25 MG TABLET PO SCH (09:00)
[2022-05-13 09:26] LABS: Hematocrit 23.4 % (35.3-44.9); Hemoglobin 7.5 g/dL (11.5-15.4)
[2022-05-13] MEDS: Acetaminophen 325 MG TABLET PO PRN (10:04)
[2022-05-13] MEDS: Lactulose Oral Soln 20 GM/30 ML UDC PO SCH ×3 (10:14→20:14)
[2022-05-13] MEDS ORDERED: Lidocaine/EPI 1:100k 1% 50 ML VIAL ONE (10:21)
[2022-05-13] MEDS ORDERED: 0.9 % Sodium Chloride 500 ML ONE (10:21)
[2022-05-13] MEDS ORDERED: Heparin 1,000 UNITS/500 mL 500 ML ONE (10:21)
[2022-05-13] MEDS ORDERED: Iopamidol - 300 50 ML VIAL IVP ONE (12:17)
[2022-05-13] MEDS ORDERED: 0.9 % Sodium Chloride 250 ML ONE (12:56)
[2022-05-13] MEDS ORDERED: Albumin 25% 25gram/100mL 25 GM/100 ML IV.SOLN IVPB ONE (14:55)
[2022-05-14] MEDS: Ipratropium/Albuterol Neb 3 ML IH SCH ×7 (00:07→23:05)
[2022-05-14 02:15] LABS: Red Blood Count 2.08 M/mcL (3.82-4.97); White Blood Count 5.8 K/mcL (4.3-11.1)
[2022-05-14 02:16] LABS: Hematocrit 17.7 % (35.3-44.9); Mean Corpuscular HGB Conc 32.8 g/dL (31.6-35.5); Mean Corpuscular Hemoglobin 27.9 pg (28.0-33.3); Mean Corpuscular Volume 85.1 fL (83.0-100.0); Mean Platelet Volume 9.3 fL (9.4-12.4); Platelet Count 148 K/mcL (140-400); Red Cell Distribution Width 16.4 % (11.5-14.5)
[2022-05-14 02:18] LABS: Hemoglobin 5.8 g/dL (11.5-15.4)
[2022-05-14] MEDS ORDERED: 0.9 % Sodium Chloride 250 ML ONE (02:45)
[2022-05-14] MEDS: Insulin LISPRO 300 UNITS/3 ML VIAL SUBQ SCH ×3 (05:36→17:26)
[2022-05-14] MEDS: Pantoprazole 40 MG VIAL IVP SCH (05:40)
[2022-05-14] MEDS: Lactulose Oral Soln 20 GM/30 ML UDC PO SCH ×3 (07:52→21:07)
[2022-05-14] MEDS: Acetaminophen 325 MG TABLET PO PRN (10:26)
[2022-05-14 14:30] LABS: Hematocrit 23.2 % (35.3-44.9)
[2022-05-14 14:31] LABS: Hemoglobin 7.9 g/dL (11.5-15.4)
[2022-05-14 18:08] LABS: Hematocrit 23.7 % (35.3-44.9)
[2022-05-15] MEDS: Ipratropium/Albuterol Neb 3 ML IH SCH ×2 (04:30→07:31)
[2022-05-15 04:57] LABS: Hematocrit 24.2 % (35.3-44.9); Hemoglobin 8.1 g/dL (11.5-15.4); Mean Corpuscular HGB Conc 33.5 g/dL (31.6-35.5); Mean Corpuscular Hemoglobin 28.6 pg (28.0-33.3); Mean Corpuscular Volume 85.5 fL (83.0-100.0); Platelet Count 157 K/mcL (140-400); Red Blood Count 2.83 M/mcL (3.82-4.97); White Blood Count 7.9 K/mcL (4.3-11.1)
[2022-05-15 05:19] LABS: Calcium 8.3 mg/dL (8.6-10.3); Potassium 3.6 mEq/L (3.5-5.1)
[2022-05-15] MEDS: Insulin LISPRO 300 UNITS/3 ML VIAL SUBQ SCH ×5 (06:00→21:21)
[2022-05-15] MEDS ORDERED: *HR* Metoprolol 5 MG/5 ML VIAL IVP ONE ×2 (07:04→08:16)
[2022-05-15] MEDS: Lactulose Oral Soln 20 GM/30 ML UDC PO SCH ×3 (07:31→21:16)
[2022-05-15] MEDS: Nystatin POWDER 30 GM BOTTLE TP SCH ×3 (10:33→21:17)
[2022-05-15] MEDS: Levalbuterol Neb 1.25 MG/3 ML IH SCH ×3 (11:02→21:59)
[2022-05-15 16:50] LABS: Hematocrit 27.3 % (35.3-44.9); Hemoglobin 8.9 g/dL (11.5-15.4)
[2022-05-16 02:52] LABS: Hematocrit 23.5 % (35.3-44.9); Hemoglobin 7.8 g/dL (11.5-15.4); Mean Corpuscular HGB Conc 33.2 g/dL (31.6-35.5); Mean Corpuscular Hemoglobin 28.8 pg (28.0-33.3); Mean Corpuscular Volume 86.7 fL (83.0-100.0); Mean Platelet Volume 9.1 fL (9.4-12.4); Platelet Count 172 K/mcL (140-400); Red Blood Count 2.71 M/mcL (3.82-4.97); Red Cell Distribution Width 15.9 % (11.5-14.5); White Blood Count 9.1 K/mcL (4.3-11.1)
[2022-05-16 02:55] LABS: Calcium 8.1 mg/dL (8.6-10.3); Magnesium 1.9 mg/dL (1.6-2.6); Potassium 3.8 mEq/L (3.5-5.1)
[2022-05-16] MEDS: Levalbuterol Neb 1.25 MG/3 ML IH SCH ×2 (04:12→10:57)
[2022-05-16 07:16] VITALS: TEMP 98.1
[2022-05-16] MEDS: Lactulose Oral Soln 20 GM/30 ML UDC PO SCH (07:17)
[2022-05-16] MEDS: Nystatin POWDER 30 GM BOTTLE TP SCH (07:18)
[2022-05-16] MEDS: Insulin LISPRO 300 UNITS/3 ML VIAL SUBQ SCH ×2 (07:19→12:00)
[2022-05-16] MEDS ORDERED: DilTIAZem CD (24hr) 180 MG CAP.ER.24H PO SCH (09:00)
[2022-05-16] MEDS ORDERED: Cholecalciferol (D-3) 1,000 UNIT (25MCG) TABLET PO SCH (09:00)
[2022-05-16 11:32] VITALS: BP 105/47; O2SAT 97
[2022-05-16 11:54] VITALS: PULSE 66
[2022-05-16] MEDS ORDERED: traZODone 50 MG TABLET PO SCH (21:00)
[2022-05-16] MEDS ORDERED: OLANZapine 5 MG TAB.RAPDIS PO SCH (21:00)
== END 2022-05-16 15:37 | disposition home health service (06) | DRG 982 ==
LOC: 2NENU → SUATTDRO 21:21
PROVIDERS: ADMIT Internal Medicine; ATTEND Internal Medicine

== ENCOUNTER 2022-06-04 01:50 | Inpatient (IN) ==
[~2022-06-04 01:50] MED LIST: *HR* Dextrose 50 % in Water (Syg) 50 ML SYRINGE IVP PRN; Artificial Tears SOLN 15 ML BOTTLE BOTH EYES PRN; D5% in Water 1,000 ML IVC PRN; Dextrose Gel 15 GM/37.5 ML TUBE PO PRN; Iopamidol - 370 500 ML MLS IVP ONE; Naloxone 0.4 MG/ML INJ IVP PRN
[2022-06-04] MEDS ORDERED: Norepinephrine 4 MG/254 ML IV.SOLN IVC ONE ×2 (02:54→05:10)
[2022-06-04] MEDS: Norepinephrine 4 MG/254 ML IV.SOLN IVC SCH ×6 (02:55→19:34)
[2022-06-04 05:18] LABS: ABG Base Excess 1 mEq/L (-2 to 3); ABG HCO3 27 mEq/L (21-27); ABG Oxygen Saturation 98 % (95-98); ABG PCO2 47 mmHg (35-45); ABG PH 7.37 pH Units (7.32-7.45); ABG PO2 105 mmHg (85-104); ABG TCO2 28 mEq/L (20-26); Blood Gas Modality ASSIST CONTROL; Blood Gas VT 400 cc
[2022-06-04 05:21] LABS: Phosphorous 4.9 mg/dL (2.7-4.5); Troponin I 0.03 ng/mL (< 0.04)
[2022-06-04 05:21] LABS: Albumin 3.1 g/dL (3.5-5.7); Albumin/Globulin Ratio 0.8 (1.1-2.2); Bilirubin,Direct 1.4 mg/dL (0.0-0.2); Bilirubin,Indirect 2.2 mg/dL (0.0-1.0); Bilirubin,Total 3.6 mg/dL (0.3-1.0); Globulin 3.7 g/dL (2.4-3.5); Potassium 5.2 mEq/L (3.5-5.1); Total Protein 6.8 g/dL (6.4-8.9)
[2022-06-04] MEDS ORDERED: *HR* Heparin 5,000 UNIT/ML VIAL IVP PRN ×4 (05:34→10:32)
[2022-06-04] MEDS ORDERED: *HR* Heparin 5,000 UNIT/ML VIAL IVP ONE (05:34)
[2022-06-04] MEDS ORDERED: Heparin 25,000UNIT/250ML 1/2NS 25,000 UNIT/250 ML IV.SOLN IVC SCH (05:45)
[2022-06-04] MEDS: FentaNYL (PF) 1,000 MCG/100 ML IV.SOLN IVC SCH ×2 (05:46→20:22)
[2022-06-04] MEDS: Artificial Tears SOLN 15 ML BOTTLE BOTH EYES SCH ×6 (06:07→22:59)
[2022-06-04] MEDS: Insulin LISPRO 300 UNITS/3 ML VIAL SUBQ SCH ×4 (06:08→23:12)
[2022-06-04 06:27] LABS: Adenovirus Not Detected (Not Detect); Bordetella Pertussis Not Detected (Not Detect); Chlamydophila pneumoniae Not Detected (Not Detect); Coronavirus 229E Not Detected (Not Detect); Coronavirus HKU1 Not Detected (Not Detect); Coronavirus NL63 Not Detected (Not Detect); Coronavirus OC43 Not Detected (Not Detect); Human Metapneumovirus Not Detected (Not Detect); Human Rhinovirus/Enterovirus DETECTED (Not Detect); Influenza A Subtype 2009 H1 Not Detected (Not Detect); Influenza B Not Detected (Not Detect); Mycoplasma pneumoniae Not Detected (Not Detect); Parainfluenza Virus 1 Not Detected (Not Detect); Parainfluenza Virus 2 Not Detected (Not Detect); Parainfluenza Virus 3 Not Detected (Not Detect); Parainfluenza Virus 4 Not Detected (Not Detect); Respiratory Syncytial Virus Not Detected (Not Detect); SARS-CoV-2 Not Detected (Not Detect)
[2022-06-04 07:38] LABS: INR 1.4; Prothrombin Time 15.3 Seconds (9.4-12.1)
[2022-06-04 07:41] LABS: Activated Partial Thrombo Time 32.7 Seconds (26.0-36.0)
[2022-06-04] MEDS ORDERED: Cefepime HCl 1,000 MG in 0.9 % Sodium Chloride 10 ML IVP SCH (08:00)
[2022-06-04 08:32] LABS: Hematocrit 27.6 % (35.3-44.9); Hemoglobin 8.7 g/dL (11.5-15.4); Mean Corpuscular Volume 94.8 fL (83.0-100.0); Red Blood Count 2.91 M/mcL (3.82-4.97); White Blood Count 18.7 K/mcL (4.3-11.1)
[2022-06-04 08:33] LABS: Basophils % 0.2 %; Eosinophils # 0.1 K/mcL (0.0-0.6); Eosinophils % 0.3 %; Lymphocytes # 0.7 K/mcL (0.6-4.6); Lymphocytes % 3.6 %; Mean Corpuscular HGB Conc 31.5 g/dL (31.6-35.5); Mean Corpuscular Hemoglobin 29.9 pg (28.0-33.3); Mean Platelet Volume 9.4 fL (9.4-12.4); Monocytes # 1.6 K/mcL (0.0-1.3); Monocytes % 8.7 %; Neutrophils # 16.1 K/mcL (1.6-8.9); Platelet Count 207 K/mcL (140-400); Red Cell Distribution Width 20.5 % (11.5-14.5); Segmented Neutrophils % 85.9 %
[2022-06-04 09:19] LABS: Heparin anti-factor XA UFH 0.14 IU/mL (0.30-0.70)
[2022-06-04] MEDS: Lactulose Oral Soln 20 GM/30 ML UDC PO SCH ×3 (09:24→20:21)
[2022-06-04] MEDS: Pantoprazole 40 MG VIAL IVP SCH (09:24)
[2022-06-04] MEDS: Chlorhexidine Rinse 15 ML MOUTHWASH MM SCH ×2 (09:24→20:21)
[2022-06-04] MEDS ORDERED: Albumin 25% 25gram/100mL 25 GM/100 ML IV.SOLN IVPB ONE (09:29)
[2022-06-04 10:16] LABS: Hemoglobin 8.7 g/dL (11.5-15.4); Mean Corpuscular HGB Conc 32.2 g/dL (31.6-35.5); Mean Corpuscular Hemoglobin 30.1 pg (28.0-33.3); Mean Corpuscular Volume 93.4 fL (83.0-100.0); Mean Platelet Volume 9.7 fL (9.4-12.4); Platelet Count 193 K/mcL (140-400); Red Blood Count 2.89 M/mcL (3.82-4.97); Red Cell Distribution Width 20.7 % (11.5-14.5); White Blood Count 17.9 K/mcL (4.3-11.1)
[2022-06-04] MEDS ORDERED: Naloxone 0.4 MG/ML INJ IVP PRN (10:52)
[2022-06-04] MEDS: Albumin 25% 25gram/100mL 25 GM/100 ML IV.SOLN IVPB SCH ×2 (15:39→23:00)
[2022-06-04] MEDS ORDERED: Ringers Solution, Lactated 1,000 ML IVC SCH (15:45)
[2022-06-04] MEDS: MetroNIDAZOLE 500 MG/100 ML 500 MG/100 ML BAG IVPB SCH ×2 (16:05→23:00)
[2022-06-04 19:26] LABS: Hemoglobin 7.1 g/dL (11.5-15.4)
[2022-06-04] MEDS: Cefepime HCl 1,000 MG in 0.9 % Sodium Chloride 10 ML IVP SCH (20:23)
[2022-06-04] MEDS ORDERED: 0.9 % Sodium Chloride 250 ML ONE (23:16)
[2022-06-05] MEDS: Norepinephrine 4 MG/254 ML IV.SOLN IVC SCH ×4 (00:42→23:32)
[2022-06-05 03:27] LABS: Eosinophils % 0.1 %; Hematocrit 24.2 % (35.3-44.9); Hemoglobin 7.8 g/dL (11.5-15.4); Immature Granulocytes % 0.7 % (0-4); Lymphocytes # 0.3 K/mcL (0.6-4.6); Lymphocytes % 3.9 %; Mean Corpuscular HGB Conc 32.2 g/dL (31.6-35.5); Mean Corpuscular Hemoglobin 30.5 pg (28.0-33.3); Mean Corpuscular Volume 94.5 fL (83.0-100.0); Mean Platelet Volume 8.9 fL (9.4-12.4); Monocytes # 0.4 K/mcL (0.0-1.3); Monocytes % 6.2 %; Neutrophils # 6.2 K/mcL (1.6-8.9); Platelet Count 114 K/mcL (140-400); Red Blood Count 2.56 M/mcL (3.82-4.97); Red Cell Distribution Width 20.3 % (11.5-14.5); Segmented Neutrophils % 89.1 %
[2022-06-05] MEDS: Artificial Tears SOLN 15 ML BOTTLE BOTH EYES SCH ×6 (03:53→23:58)
[2022-06-05 03:56] LABS: Albumin 3.6 g/dL (3.5-5.7); Albumin/Globulin Ratio 1.3 (1.1-2.2); Bilirubin,Direct 1.5 mg/dL (0.0-0.2); Bilirubin,Indirect 1.8 mg/dL (0.0-1.0); Bilirubin,Total 3.3 mg/dL (0.3-1.0); Calcium 8.6 mg/dL (8.6-10.3); Globulin 2.7 g/dL (2.4-3.5); Phosphorous 4.7 mg/dL (2.7-4.5); Potassium 4.6 mEq/L (3.5-5.1); Total Protein 6.3 g/dL (6.4-8.9)
[2022-06-05 04:16] LABS: ABG Base Excess 0 mEq/L (-2 to 3); ABG HCO3 26 mEq/L (21-27); ABG Oxygen Saturation 96 % (95-98); ABG PCO2 42 mmHg (35-45); ABG PH 7.39 pH Units (7.32-7.45); ABG PO2 80 mmHg (85-104); ABG TCO2 27 mEq/L (20-26); Blood Gas Modality AF; Blood Gas VT 400 cc
[2022-06-05] MEDS: Insulin LISPRO 300 UNITS/3 ML VIAL SUBQ SCH ×4 (06:09→23:59)
[2022-06-05] MEDS: Pantoprazole 40 MG VIAL IVP SCH (08:47)
[2022-06-05] MEDS: Lactulose Oral Soln 20 GM/30 ML UDC PO SCH ×3 (08:47→19:50)
[2022-06-05] MEDS: Cefepime HCl 1,000 MG in 0.9 % Sodium Chloride 10 ML IVP SCH ×2 (08:48→19:50)
[2022-06-05] MEDS: Albumin 25% 25gram/100mL 25 GM/100 ML IV.SOLN IVPB SCH ×3 (08:48→23:57)
[2022-06-05] MEDS: Chlorhexidine Rinse 15 ML MOUTHWASH MM SCH ×2 (08:48→19:50)
[2022-06-05] MEDS: MetroNIDAZOLE 500 MG/100 ML 500 MG/100 ML BAG IVPB SCH ×3 (08:49→23:57)
[2022-06-05] MEDS: FentaNYL (PF) 1,000 MCG/100 ML IV.SOLN IVC SCH (16:20)
[2022-06-06] MEDS: Artificial Tears SOLN 15 ML BOTTLE BOTH EYES SCH ×6 (03:31→23:01)
[2022-06-06 04:07] LABS: Hematocrit 22.8 % (35.3-44.9); Hemoglobin 7.2 g/dL (11.5-15.4); Immature Granulocytes % 0.5 % (0-4); Lymphocytes # 0.2 K/mcL (0.6-4.6); Lymphocytes % 3.3 %; Mean Corpuscular HGB Conc 31.6 g/dL (31.6-35.5); Mean Platelet Volume 9.7 fL (9.4-12.4); Monocytes # 0.4 K/mcL (0.0-1.3); Monocytes % 6.9 %; Neutrophils # 4.9 K/mcL (1.6-8.9); Platelet Count 109 K/mcL (140-400); Red Cell Distribution Width 20.7 % (11.5-14.5); Segmented Neutrophils % 89.3 %; White Blood Count 5.5 K/mcL (4.3-11.1)
[2022-06-06 04:30] LABS: Albumin 4.2 g/dL (3.5-5.7); Albumin/Globulin Ratio 1.6 (1.1-2.2); Bilirubin,Direct 1.2 mg/dL (0.0-0.2); Bilirubin,Indirect 1.6 mg/dL (0.0-1.0); Bilirubin,Total 2.8 mg/dL (0.3-1.0); Calcium 9.1 mg/dL (8.6-10.3); Globulin 2.6 g/dL (2.4-3.5); Magnesium 2.2 mg/dL (1.6-2.6); Phosphorous 4.7 mg/dL (2.7-4.5); Potassium 4.4 mEq/L (3.5-5.1); Total Protein 6.8 g/dL (6.4-8.9)
[2022-06-06 04:44] LABS: ABG Base Excess 1 mEq/L (-2 to 3); ABG HCO3 27 mEq/L (21-27); ABG Oxygen Saturation 98 % (95-98); ABG PCO2 48 mmHg (35-45); ABG PH 7.36 pH Units (7.32-7.45); ABG PO2 112 mmHg (85-104); ABG TCO2 28 mEq/L (20-26); Blood Gas VT 400 cc
[2022-06-06 04:53] LABS: Platelet Estimate Slight Decrease (Normal)
[2022-06-06] MEDS: Insulin LISPRO 300 UNITS/3 ML VIAL SUBQ SCH ×4 (05:42→23:04)
[2022-06-06] MEDS: Norepinephrine 4 MG/254 ML IV.SOLN IVC SCH ×5 (05:43→22:56)
[2022-06-06] MEDS: Cefepime HCl 1,000 MG in 0.9 % Sodium Chloride 10 ML IVP SCH ×2 (08:14→19:22)
[2022-06-06] MEDS: Pantoprazole 40 MG VIAL IVP SCH (08:15)
[2022-06-06] MEDS: Chlorhexidine Rinse 15 ML MOUTHWASH MM SCH ×2 (08:16→19:23)
[2022-06-06] MEDS: Lactulose Oral Soln 20 GM/30 ML UDC PO SCH ×3 (08:16→19:22)
[2022-06-06] MEDS: Albumin 25% 25gram/100mL 25 GM/100 ML IV.SOLN IVPB SCH ×3 (08:17→23:00)
[2022-06-06] MEDS: MetroNIDAZOLE 500 MG/100 ML 500 MG/100 ML BAG IVPB SCH ×3 (08:18→23:00)
[2022-06-06] MEDS: Insulin DETEMIR 100 UNIT/ML X5UNITS SUBQ SCH (11:02)
[2022-06-06] MEDS ORDERED: *HR* Heparin 5,000 UNIT/ML VIAL IVP PRN ×2 (12:40)
[2022-06-06] MEDS ORDERED: *HR* Heparin 5,000 UNIT/ML VIAL IVP ONE (12:40)
[2022-06-06] MEDS ORDERED: Heparin 25,000UNIT/250ML 1/2NS 25,000 UNIT/250 ML IV.SOLN IVC SCH (12:45)
[2022-06-06] MEDS: MethylPREDNISolone 40 MG/ML VIAL IVP SCH ×2 (13:09→17:04)
[2022-06-06] MEDS: FentaNYL (PF) 1,000 MCG/100 ML IV.SOLN IVC SCH (14:26)
[2022-06-06 23:23] LABS: Hematocrit 22.7 % (35.3-44.9)
[2022-06-07] MEDS ORDERED: 0.9 % Sodium Chloride 250 ML ONE (01:40)
[2022-06-07 03:29] LABS: ABG Base Excess 1 mEq/L (-2 to 3); ABG HCO3 27 mEq/L (21-27); ABG Oxygen Saturation 99 % (95-98); ABG PCO2 47 mmHg (35-45); ABG PH 7.36 pH Units (7.32-7.45); ABG PO2 128 mmHg (85-104); ABG TCO2 28 mEq/L (20-26); Blood Gas VT 400 cc
[2022-06-07] MEDS: Artificial Tears SOLN 15 ML BOTTLE BOTH EYES SCH ×6 (03:38→23:39)
[2022-06-07] MEDS: Insulin LISPRO 300 UNITS/3 ML VIAL SUBQ SCH ×4 (04:31→23:39)
[2022-06-07 04:47] LABS: Hematocrit 26.8 % (35.3-44.9); Hemoglobin 8.3 g/dL (11.5-15.4); Immature Granulocytes % 0.9 % (0-4); Lymphocytes # 0.2 K/mcL (0.6-4.6); Lymphocytes % 4.5 %; Mean Corpuscular Hemoglobin 29.1 pg (28.0-33.3); Mean Platelet Volume 9.6 fL (9.4-12.4); Monocytes # 0.3 K/mcL (0.0-1.3); Monocytes % 5.6 %; Platelet Count 105 K/mcL (140-400); Red Blood Count 2.85 M/mcL (3.82-4.97); Red Cell Distribution Width 19.9 % (11.5-14.5); White Blood Count 4.4 K/mcL (4.3-11.1)
[2022-06-07] MEDS: MethylPREDNISolone 40 MG/ML VIAL IVP SCH ×2 (05:06→17:45)
[2022-06-07 05:09] LABS: Albumin 4.3 g/dL (3.5-5.7); Albumin/Globulin Ratio 1.7 (1.1-2.2); Bilirubin,Indirect 1.7 mg/dL (0.0-1.0); Bilirubin,Total 2.7 mg/dL (0.3-1.0); Calcium 9.4 mg/dL (8.6-10.3); Globulin 2.6 g/dL (2.4-3.5); Magnesium 2.4 mg/dL (1.6-2.6); Phosphorous 4.4 mg/dL (2.7-4.5); Potassium 4.5 mEq/L (3.5-5.1); Total Protein 6.9 g/dL (6.4-8.9)
[2022-06-07] MEDS: Chlorhexidine Rinse 15 ML MOUTHWASH MM SCH ×2 (07:34→20:29)
[2022-06-07] MEDS: Cefepime HCl 1,000 MG in 0.9 % Sodium Chloride 10 ML IVP SCH ×2 (07:34→20:28)
[2022-06-07] MEDS: Lactulose Oral Soln 20 GM/30 ML UDC PO SCH ×3 (07:34→20:29)
[2022-06-07] MEDS: Pantoprazole 40 MG VIAL IVP SCH (07:34)
[2022-06-07] MEDS: Albumin 25% 25gram/100mL 25 GM/100 ML IV.SOLN IVPB SCH ×3 (07:35→23:37)
[2022-06-07] MEDS: MetroNIDAZOLE 500 MG/100 ML 500 MG/100 ML BAG IVPB SCH ×3 (07:35→23:38)
[2022-06-07] MEDS: Insulin DETEMIR 100 UNIT/ML X5UNITS SUBQ SCH (07:38)
[2022-06-07] MEDS: Norepinephrine 4 MG/254 ML IV.SOLN IVC SCH ×3 (10:21→20:29)
[2022-06-07] MEDS: FentaNYL (PF) 1,000 MCG/100 ML IV.SOLN IVC SCH (10:22)
[2022-06-07 15:21] LABS: Hematocrit 26.7 % (35.3-44.9); Red Blood Count 2.87 M/mcL (3.82-4.97)
[2022-06-07 15:23] LABS: Basophils % 0.3 %; Hemoglobin 8.6 g/dL (11.5-15.4); Immature Granulocytes % 0.9 % (0-4); Lymphocytes # 0.2 K/mcL (0.6-4.6); Lymphocytes % 4.4 %; Mean Corpuscular HGB Conc 32.2 g/dL (31.6-35.5); Mean Platelet Volume 9.2 fL (9.4-12.4); Monocytes # 0.2 K/mcL (0.0-1.3); Monocytes % 6.1 %; Platelet Count 112 K/mcL (140-400); Red Cell Distribution Width 20.5 % (11.5-14.5); Segmented Neutrophils % 88.3 %; White Blood Count 3.4 K/mcL (4.3-11.1)
[2022-06-08 04:33] LABS: ABG Base Excess 1 mEq/L (-2 to 3); ABG HCO3 26 mEq/L (21-27); ABG Oxygen Saturation 98 % (95-98); ABG PCO2 39 mmHg (35-45); ABG PH 7.42 pH Units (7.32-7.45); ABG PO2 102 mmHg (85-104); ABG TCO2 27 mEq/L (20-26); Blood Gas Modality ASSIST CONTROL; Blood Gas VT 400 cc
[2022-06-08 04:39] LABS: Hematocrit 26.2 % (35.3-44.9); Hemoglobin 8.3 g/dL (11.5-15.4); Mean Corpuscular HGB Conc 31.7 g/dL (31.6-35.5); Mean Corpuscular Hemoglobin 29.6 pg (28.0-33.3); Mean Corpuscular Volume 93.6 fL (83.0-100.0); Mean Platelet Volume 9.5 fL (9.4-12.4); Monocytes # 0.2 K/mcL (0.0-1.3); Platelet Count 108 K/mcL (140-400); Red Cell Distribution Width 20.8 % (11.5-14.5)
[2022-06-08 04:56] LABS: Albumin 4.4 g/dL (3.5-5.7); Albumin/Globulin Ratio 1.9 (1.1-2.2); Bilirubin,Indirect 1.5 mg/dL (0.0-1.0); Bilirubin,Total 2.5 mg/dL (0.3-1.0); Calcium 9.5 mg/dL (8.6-10.3); Globulin 2.3 g/dL (2.4-3.5); Magnesium 2.5 mg/dL (1.6-2.6); Phosphorous 4.2 mg/dL (2.7-4.5); Total Protein 6.7 g/dL (6.4-8.9)
[2022-06-08 05:03] LABS: Lymphocytes # 0.3 K/mcL (0.6-4.6); Neutrophils # 2.5 K/mcL (1.6-8.9)
[2022-06-08 05:04] LABS: Anisocytosis 1+ (Not Present); Platelet Estimate Slight Decrease (Normal); Stomatocytes 1+ (Not Present)
[2022-06-08] MEDS: FentaNYL (PF) 1,000 MCG/100 ML IV.SOLN IVC SCH (05:34)
[2022-06-08] MEDS: Insulin LISPRO 300 UNITS/3 ML VIAL SUBQ SCH ×6 (05:34→23:36)
[2022-06-08] MEDS: Artificial Tears SOLN 15 ML BOTTLE BOTH EYES SCH ×6 (05:34→23:36)
[2022-06-08] MEDS: Norepinephrine 4 MG/254 ML IV.SOLN IVC SCH ×2 (05:34→08:11)
[2022-06-08] MEDS ORDERED: Dexmedetomidine HCl 400 MCG/100 ML MLS IVC SCH (07:45)
[2022-06-08] MEDS: Albumin 25% 25gram/100mL 25 GM/100 ML IV.SOLN IVPB SCH (07:58)
[2022-06-08] MEDS: MetroNIDAZOLE 500 MG/100 ML 500 MG/100 ML BAG IVPB SCH (08:00)
[2022-06-08] MEDS: Cefepime HCl 1,000 MG in 0.9 % Sodium Chloride 10 ML IVP SCH (08:08)
[2022-06-08] MEDS: Lactulose Oral Soln 20 GM/30 ML UDC PO SCH ×3 (08:09→20:14)
[2022-06-08] MEDS: Pantoprazole 40 MG VIAL IVP SCH (08:09)
[2022-06-08] MEDS: Chlorhexidine Rinse 15 ML MOUTHWASH MM SCH (08:09)
[2022-06-08] MEDS: Insulin DETEMIR 100 UNIT/ML X5UNITS SUBQ SCH ×2 (08:13→20:06)
[2022-06-08 09:12] LABS: INR 1.6; Prothrombin Time 17.9 Seconds (9.4-12.1)
[2022-06-08 10:22] LABS: ABG Base Excess 0 mEq/L (-2 to 3); ABG HCO3 26 mEq/L (21-27); ABG Oxygen Saturation 96 % (95-98); ABG PCO2 44 mmHg (35-45); ABG PH 7.37 pH Units (7.32-7.45); ABG PO2 85 mmHg (85-104); ABG TCO2 27 mEq/L (20-26); Blood Gas Modality CPAP/PS; Blood Gas Pressure Support 8 cm H2O
[2022-06-08 20:54] LABS: Amorphous Sediment,Urine Few per hpf (None-Few); Bacteria,Urine Few per hpf (None-Few); Bilirubin,Urine Negative (Negative); Blood,Urine Large (Negative); Clarity,Urine Ex.Turbid (Clear); Color,Urine Yellow (Yellow); Glucose,Urine (UA) Normal (Normal); Granular Casts,Urine Few per lpf (None Seen); Hyaline Casts,Urine Many per lpf (None Seen); Ketones,Urine Trace mg/dL (Negative); Leukocyte Esterase,Urine Moderate (Negative); Mucus,Urine Few per lpf (None-Few); Nitrite,Urine Negative (Negative); Protein,Urine 100 mg/dL (Neg-Trace); RBC,Urine TNTC per hpf (0-3); Specific Gravity,Urine 1.023 (1.010-1.025); Squamous Epithelial Cell,Urine Moderate per hpf (None-Few); Transitional Epi Cells,Urine Few per hpf (None-Few); Urobilinogen,Urine Normal (Normal); WBC,Urine TNTC per hpf (0-3)
[2022-06-09 04:46] LABS: Basophils % 0.2 %; Eosinophils % 0.7 %; Hematocrit 29.7 % (35.3-44.9); Hemoglobin 9.3 g/dL (11.5-15.4); Immature Granulocytes % 1.4 % (0-4); Lymphocytes # 0.2 K/mcL (0.6-4.6); Lymphocytes % 4.3 %; Mean Corpuscular HGB Conc 31.3 g/dL (31.6-35.5); Mean Corpuscular Hemoglobin 29.5 pg (28.0-33.3); Mean Corpuscular Volume 94.3 fL (83.0-100.0); Mean Platelet Volume 9.6 fL (9.4-12.4); Monocytes # 0.5 K/mcL (0.0-1.3); Monocytes % 8.5 %; Platelet Count 103 K/mcL (140-400); Red Blood Count 3.15 M/mcL (3.82-4.97); Red Cell Distribution Width 20.5 % (11.5-14.5); Segmented Neutrophils % 84.9 %
[2022-06-09 04:55] LABS: VBG Ionized Calcium 1.21 mmol/L (1.15-1.35)
[2022-06-09 04:58] LABS: Neutrophils # 4.8 K/mcL (1.6-8.9); White Blood Count 5.6 K/mcL (4.3-11.1)
[2022-06-09 05:01] LABS: INR 1.6; Prothrombin Time 17.4 Seconds (9.4-12.1)
[2022-06-09 05:04] LABS: Albumin 4.6 g/dL (3.5-5.7); Albumin/Globulin Ratio 1.8 (1.1-2.2); Bilirubin,Indirect 1.7 mg/dL (0.0-1.0); Bilirubin,Total 2.7 mg/dL (0.3-1.0); Calcium 9.8 mg/dL (8.6-10.3); Globulin 2.5 g/dL (2.4-3.5); Magnesium 2.5 mg/dL (1.6-2.6); Phosphorous 3.5 mg/dL (2.7-4.5); Potassium 3.6 mEq/L (3.5-5.1); Total Protein 7.1 g/dL (6.4-8.9)
[2022-06-09] MEDS: Artificial Tears SOLN 15 ML BOTTLE BOTH EYES SCH ×6 (06:13→23:12)
[2022-06-09] MEDS: Insulin LISPRO 300 UNITS/3 ML VIAL SUBQ SCH ×6 (06:13→23:12)
[2022-06-09] MEDS: Pantoprazole 40 MG VIAL IVP SCH (08:39)
[2022-06-09] MEDS: Insulin DETEMIR 100 UNIT/ML X5UNITS SUBQ SCH ×2 (08:40→20:14)
[2022-06-09] MEDS: Lactulose Oral Soln 20 GM/30 ML UDC PO SCH (09:11)
[2022-06-09] MEDS ORDERED: Furosemide 40 MG/4 ML VIAL IVP ONE (09:42)
[2022-06-09] MEDS ORDERED: Levalbuterol Neb 1.25 MG/3 ML IH PRN (09:48)
[2022-06-09] MEDS: Spironolactone 25 MG TABLET PO SCH (10:17)
[2022-06-09] MEDS: Lactulose Oral Soln 20 GM/30 ML UDC RC SCH ×2 (10:23→16:13)
[2022-06-09] MEDS: *HR* Metoprolol 5 MG/5 ML VIAL IVP SCH ×4 (10:23→23:06)
[2022-06-09] MEDS: Norepinephrine 4 MG/254 ML IV.SOLN IVC SCH (10:27)
[2022-06-09 11:10] LABS: ABG Base Excess 1 mEq/L (-2 to 3); ABG HCO3 28 mEq/L (21-27); ABG Oxygen Saturation 95 % (95-98); ABG PCO2 54 mmHg (35-45); ABG PH 7.32 pH Units (7.32-7.45); ABG PO2 84 mmHg (85-104); ABG TCO2 30 mEq/L (20-26)
[2022-06-09] MEDS: Albumin 25% 25gram/100mL 25 GM/100 ML IV.SOLN IVPB SCH ×2 (16:20→23:06)
[2022-06-09 16:23] LABS: VBG HCO3 31 mEq/L (21-27); VBG PCO2 55 mmHg (41-51); VBG PH 7.36 pH Units (7.32-7.42); VBG PO2 89 mmHg (25-50)
[2022-06-09] MEDS: DilTIAZem 50 MG/50 ML IV.SOLN IVC SCH (21:13)
[2022-06-10] MEDS: DilTIAZem 50 MG/50 ML IV.SOLN IVC SCH ×6 (02:45→22:19)
[2022-06-10] MEDS: Insulin LISPRO 300 UNITS/3 ML VIAL SUBQ SCH ×5 (04:14→20:02)
[2022-06-10] MEDS: Artificial Tears SOLN 15 ML BOTTLE BOTH EYES SCH ×5 (04:14→20:02)
[2022-06-10 04:33] LABS: VBG Ionized Calcium 1.17 mmol/L (1.15-1.35)
[2022-06-10 04:47] LABS: Basophils # 0.1 K/mcL (0.0-0.2); Basophils % 0.4 %; Eosinophils # 0.1 K/mcL (0.0-0.6); Eosinophils % 0.7 %; Hematocrit 32.6 % (35.3-44.9); Hemoglobin 10.1 g/dL (11.5-15.4); Immature Granulocytes % 1.1 % (0-4); Lymphocytes # 0.2 K/mcL (0.6-4.6); Lymphocytes % 1.9 %; Mean Corpuscular Hemoglobin 29.4 pg (28.0-33.3); Mean Corpuscular Volume 94.8 fL (83.0-100.0); Mean Platelet Volume 9.4 fL (9.4-12.4); Monocytes # 0.8 K/mcL (0.0-1.3); Monocytes % 6.3 %; Neutrophils # 11.2 K/mcL (1.6-8.9); Platelet Count 128 K/mcL (140-400); Red Blood Count 3.44 M/mcL (3.82-4.97); Segmented Neutrophils % 89.6 %
[2022-06-10 04:49] LABS: White Blood Count 12.5 K/mcL (4.3-11.1)
[2022-06-10 05:03] LABS: INR 1.7; Prothrombin Time 18.6 Seconds (9.4-12.1)
[2022-06-10 05:07] LABS: Albumin 5.3 g/dL (3.5-5.7); Albumin/Globulin Ratio 2.3 (1.1-2.2); Bilirubin,Direct 1.2 mg/dL (0.0-0.2); Bilirubin,Indirect 1.9 mg/dL (0.0-1.0); Bilirubin,Total 3.1 mg/dL (0.3-1.0); Calcium 10.2 mg/dL (8.6-10.3); Globulin 2.3 g/dL (2.4-3.5); Magnesium 2.4 mg/dL (1.6-2.6); Phosphorous 3.6 mg/dL (2.7-4.5); Potassium 3.9 mEq/L (3.5-5.1); Total Protein 7.6 g/dL (6.4-8.9)
[2022-06-10 05:15] LABS: Thyroid Stimulating Hormone 0.514 mcIU/mL (0.340-5.600)
[2022-06-10] MEDS: *HR* Heparin 5,000 UNIT/ML VIAL SQ SCH ×2 (05:42→17:39)
[2022-06-10] MEDS: *HR* Metoprolol 5 MG/5 ML VIAL IVP SCH ×3 (05:43→17:39)
[2022-06-10] MEDS: Pantoprazole 40 MG VIAL IVP SCH (08:17)
[2022-06-10] MEDS: cefTRIAXone 1,000 MG in Water for inj. (sterile) 10 ML IVP SCH ×2 (08:17→09:32)
[2022-06-10] MEDS: Insulin DETEMIR 100 UNIT/ML X5UNITS SUBQ SCH ×2 (08:18→21:14)
[2022-06-10] MEDS: Lactulose Oral Soln 20 GM/30 ML UDC RC SCH ×2 (08:18→21:14)
[2022-06-10] MEDS: Albumin 25% 25gram/100mL 25 GM/100 ML IV.SOLN IVPB SCH (08:18)
[2022-06-10] MEDS: Spironolactone 25 MG TABLET PO SCH (08:22)
[2022-06-10] MEDS ORDERED: Furosemide 40 MG/4 ML VIAL IVP ONE (09:49)
[2022-06-10] MEDS ORDERED: *HR* Metoprolol 5 MG/5 ML VIAL IVP PRN (22:48)
[2022-06-10] MEDS ORDERED: Vancomycin 1,500 MG/265 ML IV.SOLN IVPB ONE (23:00)
[2022-06-11] MEDS: OLANZapine 5 MG TAB.RAPDIS PO SCH ×2 (00:10→21:13)
[2022-06-11] MEDS: Artificial Tears SOLN 15 ML BOTTLE BOTH EYES SCH ×5 (00:11→16:42)
[2022-06-11] MEDS: Insulin LISPRO 300 UNITS/3 ML VIAL SUBQ SCH ×5 (00:11→16:43)
[2022-06-11] MEDS: Acetylcysteine 10% 2 ML INHSOL IH SCH ×7 (00:24→20:25)
[2022-06-11] MEDS: Ipratropium/Albuterol Neb 3 ML IH SCH ×6 (00:24→20:23)
[2022-06-11] MEDS ORDERED: Ondansetron 4 MG/2 ML VIAL IVP PRN (00:49)
[2022-06-11] MEDS ORDERED: Ondansetron 4 MG/2 ML VIAL ONE (00:51)
[2022-06-11] MEDS: DilTIAZem 50 MG/50 ML IV.SOLN IVC SCH ×2 (02:42→09:02)
[2022-06-11 03:12] LABS: VBG Ionized Calcium 1.18 mmol/L (1.15-1.35)
[2022-06-11 03:17] LABS: Basophils % 0.1 %; Eosinophils # 0.1 K/mcL (0.0-0.6); Eosinophils % 0.8 %; Hematocrit 30.3 % (35.3-44.9); Hemoglobin 9.3 g/dL (11.5-15.4); Immature Granulocytes % 1.2 % (0-4); Lymphocytes # 0.2 K/mcL (0.6-4.6); Lymphocytes % 2.9 %; Mean Corpuscular HGB Conc 30.7 g/dL (31.6-35.5); Mean Corpuscular Hemoglobin 29.8 pg (28.0-33.3); Mean Corpuscular Volume 97.1 fL (83.0-100.0); Mean Platelet Volume 10.1 fL (9.4-12.4); Monocytes # 0.5 K/mcL (0.0-1.3); Monocytes % 6.4 %; Neutrophils # 6.6 K/mcL (1.6-8.9); Platelet Count 103 K/mcL (140-400); Red Blood Count 3.12 M/mcL (3.82-4.97); Red Cell Distribution Width 21.1 % (11.5-14.5); Segmented Neutrophils % 88.6 %; White Blood Count 7.5 K/mcL (4.3-11.1)
[2022-06-11 03:27] LABS: INR 1.5; Prothrombin Time 16.7 Seconds (9.4-12.1)
[2022-06-11 03:33] LABS: Albumin 4.5 g/dL (3.5-5.7); Albumin/Globulin Ratio 1.8 (1.1-2.2); Bilirubin,Indirect 1.6 mg/dL (0.0-1.0); Bilirubin,Total 2.6 mg/dL (0.3-1.0); Calcium 9.9 mg/dL (8.6-10.3); Globulin 2.5 g/dL (2.4-3.5); Magnesium 2.3 mg/dL (1.6-2.6); Phosphorous 2.8 mg/dL (2.7-4.5); Potassium 3.3 mEq/L (3.5-5.1)
[2022-06-11] MEDS: *HR* Heparin 5,000 UNIT/ML VIAL SQ SCH (03:49)
[2022-06-11] MEDS: Pantoprazole 40 MG VIAL IVP SCH ×2 (05:13→18:47)
[2022-06-11] MEDS: Lactulose Oral Soln 20 GM/30 ML UDC RC SCH (08:11)
[2022-06-11] MEDS: Spironolactone 25 MG TABLET PO SCH (08:11)
[2022-06-11] MEDS: Insulin DETEMIR 100 UNIT/ML X5UNITS SUBQ SCH (08:12)
[2022-06-11] MEDS: Furosemide 20 MG TABLET PO SCH (10:23)
[2022-06-11] MEDS ORDERED: Glycopyrrolate 0.2 MG/ML VIAL IVP PRN (17:11)
[2022-06-11] MEDS ORDERED: Morphine Sulfate Oral CONC 10 MG/0.5 ML ORAL.SYG SL PRN (17:11)
[2022-06-11] MEDS ORDERED: Morphine Sulfate 2 MG/ML SYRINGE IVP ONE (17:11)
[2022-06-11] MEDS ORDERED: *HR* LORazepam 2 MG/ML VIAL IVP PRN (17:11)
[2022-06-11] MEDS ORDERED: Scopolamine Patch 1.5 MG PATCH.TD72 TD SCH (17:15)
[2022-06-11] MEDS ORDERED: Lactulose Oral Soln 20 GM/30 ML UDC GTUBE SCH (21:00)
[2022-06-12] MEDS ORDERED: Spironolactone 25 MG TABLET GTUBE SCH (09:45)
[2022-06-12] MEDS ORDERED: Furosemide Oral Soln 40 MG/4 ML UDC GTUBE SCH (09:45)
[2022-06-12] MEDS ORDERED: *HR* Metoprolol 5 MG/5 ML VIAL IVP PRN (10:17)
[2022-06-12] MEDS ORDERED: Ondansetron 4 MG/2 ML VIAL IVP PRN (10:56)
[2022-06-12] MEDS: *HR* LORazepam 2 MG/ML VIAL IVP PRN ×2 (11:32→21:15)
[2022-06-12] MEDS: Furosemide 20 MG TABLET PO SCH (11:54)
[2022-06-12] MEDS: Spironolactone 25 MG TABLET PO SCH (11:55)
[2022-06-12] MEDS: Morphine Sulfate Oral CONC 10 MG/0.5 ML ORAL.SYG SL PRN ×2 (16:35→21:15)
[2022-06-12] MEDS ORDERED: OLANZapine 5 MG TAB.RAPDIS PO SCH (21:00)
[2022-06-12 23:13] VITALS: BP 106/55; PULSE 82; TEMP 98.3; O2SAT 85
[2022-06-13] MEDS: Morphine Sulfate Oral CONC 10 MG/0.5 ML ORAL.SYG SL PRN (05:19)
[2022-06-13] MEDS: *HR* LORazepam 2 MG/ML VIAL IVP PRN (05:20)
[2022-06-13] MEDS ORDERED: Atropine Sulfate 1% 40 DROP/2 ML BOTTLE SL PRN (09:26)
[2022-06-13] MEDS ORDERED: Morphine Sulfate Oral CONC 10 MG/0.5 ML ORAL.SYG SL PRN (09:28)
[2022-06-13] MEDS ORDERED: Lacri-Lube 3.5 GM TUBE BOTH EYES SCH (09:30)
[2022-06-14] MEDS ORDERED: Scopolamine Patch 1.5 MG PATCH.TD72 TD SCH (17:15)
== END 2022-06-13 11:20 | disposition expired | DRG 207 ==
LOC: ICNU 01:50 → 2ANU 06-12 08:22
PROVIDERS: ADMIT Internal Medicine; ATTEND Internal Medicine